=== PATIENT | female | born 1945 | race Caucasian/White ===

== ENCOUNTER 2021-07-06 01:31 | Inpatient (IN) | payer OTHER ==
[2021-07-06] VITALS (7 sets, daily range): BP systolic 109–138; BP diastolic 51–74
[~2021-07-06] VITALS: Ht 162.6 cm; Wt 86.0 kg
[~2021-07-06 01:31] MED LIST: ANUSOL1 EACH RC; CITRATE OF MAG296 ML PO; CLIMARA 0.00.0375 MG TD; CLIMARA1 EAC1 TD; DILTIAZEM 24HR240 MG PO; MICARDIS40 MG PO
[2021-07-06] MEDS ORDERED: LOSARTAN POTAS100 MG PO (01:45)
[2021-07-06] MEDS ORDERED: ALEVE220 MG PO (01:46)
[2021-07-06] MEDS ORDERED: HYDROCHLOROTHIA25 M1 PO (01:46)
[2021-07-06] MEDS ORDERED: GINKGO BILOBA60 M1 PO (01:46)
[2021-07-06] MEDS ORDERED: GREEN TEA1 EACH PO (01:47)
[2021-07-06] MEDS ORDERED: CALCIUM500 MG PO ×2 (01:48→04:33)
[2021-07-06] MEDS ORDERED: PROBIOTIC1 EAC7 PO (01:48)
[2021-07-06] MEDS ORDERED: STOOL SOFTENER240 MG PO (01:49)
[2021-07-06] MEDS ORDERED: VITAMIN B COMP1 EACH PO (01:49)
[2021-07-06] MEDS ORDERED: BENADRYL25 MG PO (01:50)
[2021-07-06] MEDS ORDERED: CINNAMON500 MG PO (01:50)
[2021-07-06 02:51] LABS: HEMATOCRIT 42.8 % (37.0-47.0); HEMOGLOBIN 14.3 gm/dL (12.0-15.0); MCH 29.3 pg (26.0-34.0); MCHC 33.4 g/dL (28.0-37.0); MCV 87.9 fL (80.0-100.0); RBC 4.87 mil/uL (4.20-5.00); RDW 14.6 % (10.5-14.5); WBC 8.5 thou/uL (4.0-11.0)
[2021-07-06 02:55] LABS: CALCIUM 8.9 mg/dL (8.5-10.1); CREATININE 0.9 mg/dL (0.6-1.0); POTASSIUM 3.7 mmol/L (3.5-5.1)
[2021-07-06 03:04] LABS: ALBUMIN 3.2 g/dL (3.4-5.0); TOTAL BILIRUBIN 0.4 mg/dL (0.2-1.0); TOTAL PROTEIN 7.2 g/dL (6.4-8.2)
[2021-07-06] MEDS ORDERED: VITAMIN B-1100 M2 PO (04:30)
[2021-07-06] MEDS ORDERED: ASA81BEC PO (04:31)
[2021-07-06] MEDS ORDERED: CHERATUSSIN AC PO (04:32)
[2021-07-06] MEDS ORDERED: MINIVELLE1 EAC1 TOP (04:35)
[2021-07-06] MEDS ORDERED: VOLTAREN ARTHRI20 GM TRANSDERM (04:36)
[2021-07-06] MEDS ORDERED: NORVASC10 MG PO (04:37)
[2021-07-06] MEDS ORDERED: METOPROLOL SUC100 MG PO (04:38)
[2021-07-06] MEDS ORDERED: PREVACID30 MG PO (04:39)
--- NOTE | 2021-07-06 07:17 | EKG ---
[address] [address] ELECTROCARDIOGRAM REPORT Name: EUGENIO RAINES Room #: 215-P ADM IN M.R.#: [id number] Admission: 07/06/21 Attend Phys: Marco Antonio Cast MD Discharge: Date of : 49 Report #: [id number] [facility] ED Test Date: 2021-07-06 Test Time: 02:37:33 Pat Name: EUGENIO RAINES Department: Room: [facility] Gender: F Manager Programs: ivet chacko : 1945 Requested By: Abbie Lemus Order Number: [id number] MD: Costa Pelletier Measurements Intervals [place] Rate: 110 P: [place]: QRS: 36 QRSD: 88 T: -19 QT: 320 QTc: 433 Interpretive Statements Atrial fibrillation Borderline repolarization abnormality Compared to ECG 07/06/2021 01:41:47 ST (T wave) deviation no longer present Possible ischemia no longer present Electronically Signed On 07-06-2021 7:17:27 CONSUMER LOAN PROCESSOR by Costa Pelletier [email or web address] <ELECTRONICALLY SIGNED> By: Costa Pelletier MD, [facility] 07/06/21 0717 6 6 Costa Pelletier MD, [facility] /EPI
--- NOTE | 2021-07-06 07:17 | EKG ---
[address] [place] [address] ELECTROCARDIOGRAM REPORT Name: EUGENIO RAINES Room #: 215-P ADM IN M.R.#: [id number] Admission: 07/06/21 Attend Phys: Marco Antonio Cast MD Discharge: Date of : 49 Report #: [id number] [facility] ED Test Date: 2021-07-06 Test Time: 01:41:47 Pat Name: EUGENIO RAINES Department: Room: 215 Gender: F Bit Welder: MARY JANE MILLAN : 1945 Requested By: Abbie Lemus Order Number: [id number] MD: Costa Pelletier Measurements Intervals [place] Rate: 124 P: [place]: QRS: 53 QRSD: 86 T: 257 QT: 270 QTc: 388 Interpretive Statements Atrial fibrillation Probable LVH with secondary repol abnrm ST depression, consider ischemia, diffuse lds Compared to ECG 08/29/2009 07:20:17 ST (T wave) deviation now present Possible ischemia now present Electronically Signed On 07-06-2021 7:17:19 SPRAY STAINER by Costa Pelletier [email or web address] <ELECTRONICALLY SIGNED> By: Costa Pelletier MD, [facility] 07/06/21 0717 0 014 Costa Pelletier MD, [facility] /EPI
[2021-07-06 08:39] LABS: CHOLESTEROL 217 mg/dL (<200); HDL CHOLESTEROL 65 mg/dL (>40); LDL CHOLESTEROL 140 mg/dL (<100); TC:HDL 3.3 Ratio (Not establshd); TRIGLYCERIDE 64 mg/dL (<150); VLDL 13 mg/dL (<40)
--- NOTE | 2021-07-06 15:36 | 2DMMODE ---
[facility] [place] [address] 2 D/M-MODE ECHOCARDIOGRAM Name: EUGENIO RAINES Room #: 215-P ADM IN M.R.#: [id number] Admission: 07/06/21 Attend Phys: Marco Antonio Cast MD Discharge: Date of : 49 Report #: [id number] THIS REPORT FOR: cc: Deep Rodríguez MD, Kirk D. MD Park, Jin S. MD ~ APPROVED REPORT Study performed: 07/06/2021 13:16:35 EXAM: Comprehensive 2D, Doppler, and color-flow Echocardiogram Patient Location: Bedside Room #: [facility] Status: routine BSA: 2.01 HR: 100 bpm BP: 123/51 mmHg Rhythm: Atrial Fibrillation Other Information Study Quality: Good Indications Chest pain, Afib with RVR. Hx: Afib, HTN. 2D Dimensions RVDd: 30.74 mm IVSd: 8.80 (7-11mm) LVOT Diam: 18.59 (18-24mm) LVDd: 41.19 mm PWd: 8.62 (7-11mm) LVDs: 28.42 (25-40mm) Left Atrium: 32.62 (27-40mm) Aortic Root: 33.89 mm Volumes Left Atrial Volume (Systole) Single Plane 4CH: 46.49 mL Single Plane 2CH: 38.63 mL LA ESV Index: 23.00 mL/m2 Aortic Valve AoV Peak Rahat.: 1.29 m/s AO Peak Gr.: 6.64 mmHg LVOT Max P.46 mmHg LVOT Max V: 1.17 m/s [facility] [address] [address] 2 D/M-MODE ECHOCARDIOGRAM Name: EUGENIO RAINES Room #: 215-P [facility] IN [facility]#: [id number] Admission: 07/06/21 Attend Phys: Marco Antonio Cast MD Discharge: Date of : 49 Report #: [id number] Vmax: 2.46 cm2 Mitral Valve MV Decel. Time: 136.29 ms MV E Max Rahat.: 0.94 m/s Pulmonary Valve PV Peak Rahat.: 0.91 m/s PV Peak Gr.: 3.32 mmHg Tricuspid Valve TR Peak Rahat.: 2.43 m/s RAP Estimate: 5.00 mmHg TR Peak Gr.: 24.00 mmHg PA Pressure: 29.00 mmHg Left Ventricle The left ventricle is normal size. There is normal LV segmental wall motion. There is normal left ventricular wall thickness. Left ventricular systolic function is normal. LVEF is 65%. This study is not technically sufficient to allow evaluation of the LV diastolic function due to atrial fibrillation. Right Ventricle The right ventricle is normal size. The right ventricular systolic function is normal. Atria The left atrium size is normal. The right atrium size is normal. Aortic Valve The aortic valve is normal in structure. No aortic regurgitation is present. There is no aortic valvular stenosis. Mitral Valve The mitral valve is normal in structure. Trace mitral regurgitation. No evidence of mitral valve stenosis. Tricuspid Valve The tricuspid valve is normal in structure. Mild tricuspid regurgitation. Estimated PAP is 27 mmHg. Pulmonic Valve Pulmonic valve is not well visualized. Great Vessels The aortic root is normal in size. Ascending aorta is not well [facility] [address] [place] [address] 2 D/M-MODE ECHOCARDIOGRAM Name: EUGENIO RAINES Room #: 215-P [facility] IN ..#: [id number] Admission: 07/06/21 Attend Phys: Marco Antonio Cast MD Discharge: Date of : 49 Report #: [id number] visualized. IVC is normal in size and collapses >50% with inspiration. Pericardium There is no pericardial effusion. <Conclusion> The left ventricle is normal size. There is normal left ventricular wall thickness. Left ventricular systolic function is normal. The right ventricle is normal size. The left atrium size is normal. The aortic valve is normal in structure. Trace mitral regurgitation. Mild tricuspid regurgitation. <ELECTRONICALLY SIGNED> By: Ashok Power MD 07/06/21 1535 1535 1535 Ashok Power MD /INF
[2021-07-07 00:29] VITALS: BP 133/63
[2021-07-07 03:40] VITALS: BP 121/64
[2021-07-07 08:01] VITALS: BP 131/79
[2021-07-07 08:24] LABS: CALCIUM 8.6 mg/dL (8.5-10.1); CREATININE 0.8 mg/dL (0.6-1.0); POTASSIUM 3.7 mmol/L (3.5-5.1)
[2021-07-07 12:09] VITALS: BP 150/80
[2021-07-07 16:12] VITALS: BP 127/69
[2021-07-07 20:15] VITALS: BP 139/82
[2021-07-08 04:45] VITALS: BP 110/50; BP 142/81
--- NOTE | 2021-07-08 05:48 | NUR ---
PT AMBULATING TO BATHROOM INDEPENDENTLY AND IS TOLERATING WELL. DENIES PAIN. RESTING COMFORTABLY. NO NEEDS VOICED. CALL LIGHT WITHIN REACH. FREQUENT OBSERVATION.
[2021-07-08 07:37] VITALS: BP 148/80
[2021-07-08 11:05] VITALS: BP 138/79
[2021-07-08 16:41] VITALS: BP 130/60
[2021-07-08 19:45] VITALS: BP 143/86
--- NOTE | 2021-07-09 03:12 | NUR ---
PT AMBULATING TO BATHROOM INDEPENDENTLY AND IS TOLERATING FAIR. DENIES PAIN. STRESS TEST PLANNED FOR 07/09. RESTING COMFORTABLY. NO NEEDS VOICED. CALL LIGHT WITHIN REACH. FREQUENT OBSERVATION.
[2021-07-09 04:45] VITALS: BP 142/71
[2021-07-09 08:34] VITALS: BP 115/69
[2021-07-09 12:13] VITALS: BP 151/75
[2021-07-09] MEDS ORDERED: ELIQUIS5 MG PO (13:22)
[2021-07-09] MEDS ORDERED: ATENOLOL 50MG T50 MG PO (13:22)
[2021-07-09 13:41] VITALS: BP 151/75
--- NOTE | 2021-07-09 14:04 | NUR ---
PT ADMITTED FOR RAPID HEART RATE. CHART REVIWED AND CARE DISCUSSED WITH CARE TEAM. CM ROLE INTRODUCED. PT APPEARS A&O X4. PT WAS ON THE PHONE AND HAD AND DAUGHTER ON SPEAKER DURING CM ASSESSMENT. PT REPORTS SHE LIVES AT HER HOME WITH . SHE REPORTS NO STAIRS TO GET INTO THE HOME. SHE DOES REPORT STAIRS INSIDE BUT HER KIDS HAVE MOVED THEIR BEDROOM SO THEY DONT HAVE TO USE STAIRS. PT REPORTS SHE HAS A CANE FOR AMBULATION R/T KNEE PROBLEMS BUT REPORTS SHE DOES NOT PLAN TO USE IT. SHE REPORTS DOING HER OWN BATHING, TOILETING, AND ALL ADLS AND MOBILITY. SHE REPORTS NO CONCERNS ONCE MEDICALLY STABLE TO DC. HER GOAL IS TO DC HOME WITH NO NEEDS. PT PROVIDED ELIQUIS COUPONS BY THIS CM AND EXPLAINED THEIR USE. PT REPORTS SHE ALSO HAS MEDICARE D. NO OTHER CM INTERVENTIONS AT THIS TIME.
--- NOTE | 2021-07-09 14:41 | NUR ---
ASSESSMENT CHARTED - MEDS PER BILL BLOOM DIET AND FLUIDS. UP AD TAMMIE IN ROOM - NO CO'S OF PAIN OR NAUSEA. NUC STRESS TEST COMPLETED THIS AM - NEGATIVE RESULT - PT HOME THIS AFTERNOON - INSTRUCTION RE HOME MEDS/ CARE AND FOLLOW UP GIVEN TO PATIENT -STATED UNDERSTANDING - LEFT UNIT VIA WHEELCHAIR - HOME VIA PVT VEHICLE ACCOMPANIED BY DAUGHTER - NO CO'S AT TIME OF D/C.
== END 2021-07-09 14:15 | disposition home or self-care (01) | DRG 309 ==
LOC: ER 01:31 → 2N 03:24 → EROBS 03:24 → 2N 05:07
PROVIDERS: Nurse Practitioner Family; Student in an Organized Health Care Education/Training Program; ADMIT Internal Medicine; ATTEND Internal Medicine
DX: I48.0 Paroxysmal atrial fibrillation (principal); I20.0 Unstable angina; I10 Essential (primary) hypertension; R53.81 Other malaise; M25.561 Pain in right knee; K21.9 Gastro-esophageal reflux disease without esophagitis; R91.1 Solitary pulmonary nodule; Z20.822 Contact with and (suspected) exposure to COVID-19; E66.9 Obesity, unspecified; G47.00 Insomnia, unspecified; Z91.048 Other nonmedicinal substance allergy status; Z90.710 Acquired absence of both cervix and uterus; Z88.8 Allergy status to other drugs, medicaments and biological substances; Z90.49 Acquired absence of other specified parts of digestive tract; Z82.49 Family history of ischemic heart disease and other diseases of the circulatory system; Z79.82 Long term (current) use of aspirin; Z79.899 Other long term (current) drug therapy; Z79.1 Long term (current) use of non-steroidal anti-inflammatories (NSAID); Z68.32 Body mass index [BMI] 32.0-32.9, adult; Z23 Encounter for immunization
CPT/HCPCS: 10081